=== PATIENT | female | born 1955 | race American Indian/Alaskan Native ===

== ENCOUNTER 2021-09-22 13:03 | Emergency (ER) | payer MEDICARE ==
[2021-09-22] MEDS ORDERED: HYDROcodone/ACETAMINOPHEN 5-325 MG TAB PO ONE (13:29)
--- NOTE | 2021-09-22 13:29 | Emergency Department Report ---
ED Back Pain/Injury HPI - General Chief Complaint: Extremity Injury, Lower Stated Complaint: PAIN AND CRAMPS IN LEGS AND BACK Time Seen by Provider: 09/22/21 13:19 Source: patient Limitations: No Limitations - History of Present Illness Initial Comments: 66-year-old female with a past medical history of hypertension, diabetes and hyperlipidemia presents to the ER today with complaints of lower back pain. Patient states that she has been having lower back pain radiating down into both of her legs for the past 2 months. She states been a constant pain and feels like is getting worse. She states that the pain in her back is worse with certain movements. She denies any particular injury. She denies any strenuous activity. She states that she does not work and is currently on disability. She is not exactly sure why she is on disability. She states that she moved here from [place] 3 years ago but has not established with a local PCP. She has not seen anyone for her back pain since it started 2 months ago. She has been taking dhle-dex-edocqea Tylenol without much relief. She reports intermittent numbness down into her leg, but otherwise no leg weakness, abdo harris pain, bowel or bladder incontinence, UTI symptoms, saddle anesthesia, chest pain or shortness of breath. She states that she drinks occasionally but she denies any illicit drug use. She denies any fever or chills. MD Complaint: back pain -: month(s) (2) - Related Data Previous Rx's Medication Instructions Recorded Last Taken Type HYDROcodone/APAP 5-325 [[place] 1 each PO Q4HR PRN #10 tablet 09/22/21 Unknown Rx 5/325] Ibuprofen [Motrin] 400 mg PO Q8H PRN #30 tablet 09/22/21 Unknown Rx Metaxalone [Skelaxin] 800 mg PO TID #30 tablet 09/22/21 Unknown Rx Allergies Allergy/AdvReac Type Severity Reaction Status Date / Time Penicillins Allergy Severe Angioedema Verified 09/22/21 13:16 ED Review of Systems ROS: Stated complaint: PAIN AND CRAMPS IN LEGS AND BACK Other details as noted in HPI Comment: All other systems reviewed and negative Constitutional: denies: chills, fever Eyes: as per HPI ENT: denies: ear pain, throat pain, dental pain, hearing loss, epistaxis, congestion Respiratory: denies: cough, shortness of breath, SOB with exertion, SOB at rest, wheezing Cardiovascular: denies: chest pain, palpitations Gastrointestinal: denies: abdominal pain, nausea, diarrhea, constipation, hematemesis, hematochezia Genitourinary: denies: urgency, dysuria, frequency, hematuria, discharge, abnormal menses, dyspareunia Musculoskeletal: back pain Skin: denies: rash, lesions Neurological: numbness. denies: headache, weakness, paresthesias, confusion, abnormal gait, vertigo Psychiatric: denies: anxiety, depression, auditory hallucinations, visual hallucinations, homicidal thoughts, suicidal thoughts Hematological/Lymphatic: denies: easy bleeding, easy bruising, swollen glands ED Past Medical Hx - Medications Home Medications: Home Medications Medication Instructions Recorded Confirmed Last Taken Type HYDROcodone/APAP 5-325 [[place] 1 each PO Q4HR PRN #10 tablet 09/22/21 Unknown Rx 5/325] Ibuprofen [Motrin] 400 mg PO Q8H PRN #30 tablet 09/22/21 Unknown Rx Metaxalone [Skelaxin] 800 mg PO TID #30 tablet 09/22/21 Unknown Rx ED Physical Exam - General Limitations: No Limitations General appearance: alert, in no apparent distress - Head Head exam: Present: atraumatic, normocephalic, normal inspection - Eye Eye exam: Present: normal appearance, PERRL, EOMI Pupils: Present: normal accommodation - Respiratory Respiratory exam: Present: normal lung sounds bilaterally. Absent: respiratory distress, wheezes, rales, rhonchi - Cardiovascular Cardiovascular Exam: Present: regular rate, normal rhythm, normal heart sounds - GI/Abdominal GI/Abdominal exam: Present: soft. Absent: distended, tenderness, guarding, rebound - Back Exam Back exam: Present: normal inspection, paraspinal tenderness (lower lumbar ), vertebral tenderness (lower lumbar ). Absent: full ROM, CVA tenderness (R), CVA tenderness (L) - Expanded Back Exam Expanded Back exam: Present: other (patient is able to stand on her toes ). Absent: saddle anesthesia Back exam: Sciatic Notch Tenderness: Left, Right - Neurological Exam Neurological exam: Present: alert, oriented X3, CN II-XII intact, normal gait. Absent: motor sensory deficit - Psychiatric Psychiatric exam: Present: normal affect, normal mood - Skin Skin exam: Present: intact ED Course Vital Signs 09/22/21 09/22/21 13:15 15:00 Temperature 98.4 F Pulse Rate 77 86 Respiratory 16 18 Rate Blood Pressure 208/107 164/92 [Right] O2 Sat by Pulse 99 Oximetry ED Medical Decision Making - Radiology Data Radiology results: report reviewed Patient: NAN SCHREIBER MR#: [id number] : 1955 Acct:[id number] Age/Sex: 66 / F ADM Date: 09/22/21 Loc: ED Attending Dr: Ordering Physician: VICKY ALLEN Date of Service: 09/22/21 Procedure(s): XR spine lumbosacral 2-3V Accession Number(s): [id number] cc: VICKY ALLEN Fluoro Time In Minutes: Lumbar spine 3 views INDICATION: Low back pain. No history of injury IMPRESSION: No fracture or subluxation is identified. Mild L5-S1 and L4-L5 facet arthropathy. Signer Name: Nabil Fairchild MD Signed: 09/22/2021 2:32 PM Workstation Name: [id number] Transcribed By: Dictated By: Nabil Fairchild MD Electronically Authenticated By: Nabil Fairchild MD Signed Date/Time: 09/22/211431 DD/ 29 TD/TT: - Medical Decision Making The patient presented with back pain x 2 mths. Xray shows Mild L5-S1 and L4-L5 facet arthropathy. The patient is now comfortably and feels better, is alert, talkative, interactive and in no distress. The patient is neurologically intact and is ambulatory in the ED. She has no fever, no bowel or bladder incontinence, no saddle anesthesia and is otherwise alert and well-appearing. Her history, physical examination and diagnostic testing does not suggest the presence of acute spinal epidural abscess, acute epidural bleed, cauda equina syndrome, abdominal/thoracic aortic aneurysm, aortic dissection or other acute process requiring further testing, treatment or consultation in the emergency department. The vital signs have been stable. Discussed x-ray results, suspected diagnosis and treatment plan with patient. The patient condition is stable and appropriate for discharge. The patient will pursue further outpatient evaluation with the primary care physician or other designated or consulting physician as indicated in the discharge instructions. Critical care attestation.: If time is entered above; I have spent that time in minutes in the direct care of this critically ill patient, excluding procedure time. ED Disposition Clinical Impression: Sciatica Disposition: 01 HOME / SELF CARE / HOMELESS Is pt being admited?: No Does the pt Need Aspirin: No Condition: Stable Instructions: Sciatica, [id number] Additional Instructions: I recommend that you take the Motrin, the Skelaxin, and the hydrocodone as prescribed to help your pain. Is important that you try to follow-up with your PCP or the orthospine specialist this Thursday discharge instructions for further evaluation including an MRI of your lower back. Return to the ER if at any point your symptoms changes or worsens in any way. Prescriptions: Ibuprofen [Motrin] 400 mg PO Q8H PRN #30 tablet PRN Reason: pain HYDROcodone/APAP 5-325 [[place] 5/325] 1 each PO Q4HR PRN #10 tablet PRN Reason: Pain Metaxalone [Skelaxin] 800 mg PO TID #30 tablet Referrals: [facility] [Provider Group] - 3-5 Days [facility] [Provider Group] - 3-5 Days Time of Disposition: 14:52
--- NOTE | 2021-09-22 14:36 | XRay Report ---
Lumbar spine 3 views INDICATION: Low back pain. No history of injury IMPRESSION: No fracture or subluxation is identified. Mild L5-S1 and L4-L5 facet arthropathy. Signer Name: Nabil Fairchild MD Signed: 09/22/2021 2:32 PM Workstation Name: [id number]
[2021-09-22 15:02] VITALS: BP 164/92
== END 2021-09-22 15:10 | disposition home or self-care (01) ==
LOC: ED 13:03
DX: M54.30 Sciatica, unspecified side (principal); Z88.0 Allergy status to penicillin
CPT/HCPCS: 72100; 99283